=== PATIENT | female | born 1975 | race Caucasian/White ===

== ENCOUNTER 2022-01-28 14:00 | Outpatient (RCR) | payer MEDICARE, SELFPAY | END 2022-01-28 14:05 | disposition home or self-care (01) | LOC: OT 14:00 | PROVIDERS: PCP Family Medicine; Visit Provider Family Medicine | DX: M25.511 Pain in right shoulder (principal); G89.29 Other chronic pain | CPT/HCPCS: 97010; 97014; 97110; 97166; 97535; G0283 ==